=== PATIENT | male | born 1955 | race Caucasian/White ===

== ENCOUNTER 2016-09-30 05:54 | Inpatient (IN) | payer BC ==
[2016-09-30] MEDS ORDERED: ceFAZolin SODIUM 1 GM VIAL IV PRN (06:00)
[2016-09-30] MEDS ORDERED: MORPHINE SULFATE 15 MG TABLET.SA PO PRN (06:00)
[2016-09-30] MEDS: RINGERS SOLUTION,LACTATED 1,000 ML IV PRN ×2 (07:07→07:35)
[2016-09-30] MEDS ORDERED: RINGERS SOLUTION,LACTATED 1,000 ML IV ONE ×2 (08:10→09:55)
[2016-09-30] MEDS: ROPIVACAINE HCL/PF 100 MG, EPINEPHrine 0.2 MG, KETOROLAC TROMETHAMINE 30 MG in NORMAL S... IJ PRN ×2 (08:38→09:15)
[2016-09-30] MEDS: TRANEXAMIC ACID 1,000 MG in NORMAL SALINE 100 ML IV PRN ×2 (08:39→09:15)
[2016-09-30] MEDS ORDERED: MAGNESIUM HYDROXIDE 30 ML UDC PO PRN (10:00)
[2016-09-30] MEDS ORDERED: diphenhydrAMINE HCL 50 MG/ML VIAL IV PRN (10:00)
[2016-09-30] MEDS ORDERED: ONDANSETRON HCL/PF 2 MG/ML VIAL IV PRN (10:00)
[2016-09-30] MEDS ORDERED: HYDROmorphone HCL 1 MG/ML DISP.SYRIN IV PRN (10:00)
[2016-09-30] MEDS ORDERED: ZOLPIDEM TARTRATE 5 MG TABLET PO PRN (10:00)
[2016-09-30] MEDS ORDERED: MAG HYDROX/ALUMINUM HYD/SIMETH 30 ML UDC PO PRN (10:00)
[2016-09-30] MEDS ORDERED: DEXTROSE 5%-LACTATED RINGERS 1,000 ML IV PRN (10:00)
[2016-09-30] MEDS ORDERED: PROMETHAZINE HCL 5 MG in DEXTROSE 5 % IN WATER 50 ML IV PRN ×2 (10:00)
[2016-09-30] MEDS ORDERED: ACETAMINOPHEN 500 MG TABLET PO PRN (10:00)
--- NOTE | 2016-09-30 10:05 | OR ---
Operative Report - Dictated Report Narrative: Date: 09/30/2016 Preoperative diagnosis: Right Knee degenerative joint disease. Postoperative diagnosis: Right Knee degenerative joint disease. Procedure: Right Total knee arthroplasty. Surgeon: Kelvin Byers M.D. Lastex Operator: Vladimir Vinson PA-C Anesthesia: Spinal with regional block and local periarticular joint injection. Complications: None Specimens: Bone for disposal. Estimated blood loss: Minimal. Tourniquet time: 100 Minutes at 325 millimeters of mercury. Retained implants: Depuy Attune size 7 right lugged cemented posterior stabilized femoral component. Size 6 fixed-bearing cemented tibial platform. 7 by 8 millimeter posterior stabilized cross-linked tibial insert. 41 millimeter medialized patella button. Indications: Mr. Waller is a 61-year-old gentleman who has had long- standing right knee pain and arthrosis. This patient was followed in my clinic for period of time with significant complaints of right knee pain consistent with arthritic changes. They had failed conservative measures including, but not limited to, activity modification, passage of time, medications, and other conservative measures. Patient wished to proceed with surgical treatment. The risks, benefits, and alternatives were discussed in clinic. The risks of , blood clots, bleeding, infection, nerve/tendon blood vessel/ injury, malposition of components, intraoperative fracture, postoperative limited range of motion, persistent pain, failure of components, and need for additional procedures. Patient wished to proceed consent was obtained after answering all questions. Procedure: After marking the correct extremity on the floor, the patient was taken to the operating room. A timeout was performed. IV antibiotics consisting of Ancef were administered prior to the procedure. A regional followed by spinal anesthetic was induced by anesthesia on the operative table with all bony prominences well-padded. Singh catheter was placed, and a bump was placed under the operative side buttock. SCDs and GALILEO hose were utilized on the nonoperative leg. A well-padded tourniquet was applied to the operative thigh. The operative leg was then pre-scrubbed with alcohol prepped, and draped in a standard sterile fashion. After exsanguinating the extremity with an Esmarch bandage, the tourniquet was inflated. After marking out the anterior knee for standard incision centered over the patella, the skin was incised and dissected down to the joint retinaculum. The joint retinaculum was marked out as well as the horizontal axis of the patella, and a standard medial parapatellar arthrotomy was then made. The most proximal aspect of the quadriceps tendon and the patella tendon insertion were protected from release. A partial synovectomy was performed as well as a resection of the infrapatellar fat pad. The distal femoral fat pad proximal to the trochlea was also resected using cautery. The soft tissues were elevated off the medial aspect of the proximal tibia using a John elevator ensuring that we did not transect the medial collateral ligament. Upon initial evaluation range of motion was approximately 10 degrees to 110 degrees of flexion. There were signs of advanced arthrosis in the medial, lateral, and patellofemoral joint spaces. There was significant synovitis and multiple loose bodies. There were large marginal osteophytes which were removed with a rongeur. The knee was hyperflexed and the patella was tucked laterally. Protecting the surrounding soft tissues with Homans, an entry drill was placed down the femoral canal using Whitesides line for guidance into the entry point. The intramedullary femoral alignment ramy was utilized in order to cut the distal femur in 5 degrees of valgus resecting 10 millimeters of bone. Next the distal femur was sized to a size 7. A posterior referencing guide was utilized to place the distal femoral cutting block in 3 degrees of external rotation. This was pinned into place. The rotation was confirmed both visually and based on anatomic landmarks. The 4 in 1 cutting jig of the appropriate size was utilized in order to make all bony cuts. The angle wing was used to ensure no notching. Retractors were utilized in order to protect surrounding soft tissues. This cut did not result in any excessive notching. We then cut the box centered over the distal femur. This allowed for resection of the anterior and posterior cruciate ligaments. I then turned my attention to the preparation of the tibia. Using an extra medullary tibial alignment ramy, 3 millimeters of bone was resected off the medial articular surface. This was made perpendicular to the mechanical axis of the joint with the alignment ramy centered over the ankle mortise. The alignment ramy was checked and was noted to be parallel to the mechanical axis, centered over the medial one third of the tibial tubercle, paralleling the anterior surface of the tibia. We then turned our attention to the remaining meniscus and soft tissues. These were removed while protecting the surrounding ligaments and soft tissues. The marginal osteophytes off the anterior, posterior, medial, lateral aspects of the femur and tibia were removed. The tibia was sized out to a size 6. Next the tibia was drilled and punched in an externally rotated position. Next the trial femur and a series of tibial inserts were utilized in order to allow for full extension and maximal flexion. It was found that a 8 millimeter insert gave the best range of motion and stability at multiple flexion points as well as at full extension there was less than 2 mm of gapping both medially and laterally. There is minimal anterior translation with the knee at 90 degrees of flexion and no signs of being able to dislocate the knee. The patella was then prepared. The initial thickness was 26 millimeters. This was reamed down to 16 millimeters parallel to the anterior surface of the patella. It was sized out to a size 41 medialized patella button. This was then drilled and trialed. Without any medial restraint the patella tracked appropriately and did not sublux or dislocate. At this point, it was felt these were the appropriate sized implants, and all trials were removed. The standard periarticular joint injection consisting of ropivacaine, Toradol, and epinephrine were injected into the periarticular joint tissues. The bony surfaces were thoroughly irrigated with a pulsatile- suction saline irrigation device. A bone plug from the prior resected anterior chamfer cut was placed into the drill hole at the distal femur. The bony surfaces were then dried in preparation for placement of the implants. The cement was vacuum mixed per the wireline field operator's instructions. The cement was placed on the dry bony surfaces and posterior aspect of the implants. The implants were impacted into place, removing all extruded cement. At this point anesthesia administered tranexamic acid per protocol intravenously. The knee was placed in extension with axial loading with the trial insert while the cement cured. Once the cement cured, all remaining extruded cement was removed. The knee was placed through a range of motion with the trial insert to ensure appropriate range of motion and stability. Final range of motion was approximately 0 to 120 degrees. The knee was again thoroughly irrigated with pulsatile saline lavage. The final polyethylene insert was then impacted into place ensuring no retained soft tissues. The remaining periarticular joint injection was injected. A medium Hemovac drain was placed exiting superior laterally. The knee was then placed over a triangle and the arthrotomy was closed with interrupted #1 Vicryl after thoroughly irrigating the joint. The deep and subcutaneous tissues were closed with interrupted oh and 3-0 Vicryl respectively. Skin was closed with a running subcutaneous 3-0 Monocryl and Prineo Dermabond dressing. 4 x 4's, Sof-Rol, and a full leg Johnny wrap were applied. All sponge, needle, blade, and instrument counts were correct prior to closing the wounds. Postoperative condition: The patient was awoken and transferred to the postanesthesia care unit in stable condition. Plan is to be admitted to the inpatient medical/surgical floor postoperatively for 24 hours of IV antibiotics , physical therapy, occupational therapy, and medical comanagement. Patient will be weightbearing as tolerated with range of motion as tolerated. DVT prophylaxis will be with SCDs, GALILEO hose, and pharmacological anticoagulation. Anticipated hospital stay is approximately 2-4 days.
[2016-09-30] MEDS: ceFAZolin SODIUM 1 GM in DEXTROSE 5 % IN WATER 100 ML IV SCH ×6 (11:00→23:15)
[2016-09-30] MEDS: KETOROLAC TROMETHAMINE 15 MG/ML VIAL IV SCH ×3 (11:01→22:12)
[2016-09-30] MEDS: oxyCODONE HCL/ACETAMINOPHEN 1 TAB TABLET PO PRN (17:04)
[2016-09-30] MEDS: SENNOSIDES/DOCUSATE SODIUM 1 TAB TABLET PO SCH (20:05)
[2016-09-30] MEDS: MORPHINE SULFATE 15 MG TABLET.SA PO SCH (20:05)
[2016-10-01] MEDS: KETOROLAC TROMETHAMINE 15 MG/ML VIAL IV SCH ×4 (04:27→22:45)
[2016-10-01 05:40] LABS: Hematocrit 32.2 % (42.0-52.0); Hemoglobin 10.7 gm/dL (13.5-18.0); Mean Cell Volume 92.3 fl (78-100); Mean Corpuscular Hemoglobin 30.7 pg (27-31); Mean Corpuscular Hgb Conc 33.2 g/dl (32-36); Mean Platelet Volume 10.3 fl (6.0-9.5); Platelet Count 170 K/mm3 (150-450); Red Blood Count 3.49 M/mm3 (4.7-6.0); Red Cell Distribution Width 12.7 % (11.5-14.0); White Blood Count 7.8 K/mm3 (4.0-10.5)
[2016-10-01 05:49] LABS: Anion Gap 10.4 mmol/L (6.8-13.8); BUN/Creatinine Ratio 11.8 (9.0-21.6); Calcium * 8.1 mg/dL (7.9-10.9); Carbon Dioxide 27.4 mmol/L (24-32.6); Estimated Creat Clear 88.3; Potassium 3.8 mmol/L (3.4-4.6)
[2016-10-01] MEDS: predniSONE 5 MG TABLET PO SCH (08:50)
[2016-10-01] MEDS: FOLIC ACID 1 MG TABLET PO SCH (08:50)
[2016-10-01] MEDS: MORPHINE SULFATE 15 MG TABLET.SA PO SCH ×2 (08:51→20:24)
[2016-10-01] MEDS: ENOXAPARIN SODIUM 40 MG/0.4 ML SYRG SC SCH (09:43)
--- NOTE | 2016-10-01 16:28 | PN ---
Subjective - Date and Time Seen Date: 10/01/16 Time: 16:26 Subjective Narrative: Subjective: Reports no concerns. Was able to walk in the lainez with therapy. Pain is well-controlled. Voiding without any complications. Tolerating by mouth intake. Denies any nausea or vomiting. Denies calf pain. Slept well. Physical exam: Alert and oriented to person, place and time Right lower Extremity: Palpable dorsalis pedis pulse. Sensation grossly intact to light touch. Dressings clean and dry. Able to flex and extend ankle and toes. No excessive drainage. Calf and thigh are soft and nontender. Assessment: Postop day 1 status post right total knee arthroplasty. Plan: Continue with physical and occupational therapy weightbearing as tolerated. Continue with anticoagulation. 24 hours postoperative prophylactic antibiotics. Pain control with goal to rely on oral medications. Continue bowel regimen. Will need 6 weeks with walker or assitive device to protect joint while ambulating during the recovery process. Discharge planning. Discontinue drain and Singh catheter. Repeat labs in a.m. Objective - Vitals Vitals: Last Vital Signs Temp 36.8 C 10/01/16 15:54 Pulse 61 10/01/16 15:54 Resp 16 10/01/16 15:54 BP 113/67 10/01/16 15:54 Pulse Ox 99 10/01/16 15:54 - Abnormal Lab Findings Abnormal Lab Findings: Abnormal Lab Results 10/01/16 10/01/16 Range/Units 05:05 05:05 RBC 3.49 L (4.7-6.0) M/mm3 Hgb 10.7 L (13.5-18.0) gm/dL Hct 32.2 L (42.0-52.0) % MPV 10.3 H (6.0-9.5) fl Random Glucose 114 H (70-110) mg/dL - Exam Constitutional: Present: Alert, Oriented x3 Cauti Physician Documentation - Urinary Catheter Management Urethral (Singh) Date of Insertion: 09/30/16 Time of Insertion: 08:00 Assessment/Plan - Problems/Diagnosis (1) Status post total right knee replacement Problem: Acute (2) Rheumatoid arthritis Problem: Chronic Qualifiers: Rheumatoid arthritis location: multiple sites (3) Acute blood loss anemia Problem: Acute
[2016-10-01] MEDS: SENNOSIDES/DOCUSATE SODIUM 1 TAB TABLET PO SCH (20:24)
[2016-10-02] MEDS: KETOROLAC TROMETHAMINE 15 MG/ML VIAL IV SCH (05:09)
[2016-10-02 06:01] LABS: Hematocrit 28.9 % (42.0-52.0); Hemoglobin 9.7 gm/dL (13.5-18.0); Mean Corpuscular Hemoglobin 30.9 pg (27-31); Mean Corpuscular Hgb Conc 33.6 g/dl (32-36); Mean Platelet Volume 10.1 fl (6.0-9.5); Platelet Count 155 K/mm3 (150-450); Red Blood Count 3.14 M/mm3 (4.7-6.0); Red Cell Distribution Width 12.7 % (11.5-14.0)
[2016-10-02 06:25] LABS: Anion Gap 10.1 mmol/L (6.8-13.8); Calcium * 8.4 mg/dL (7.9-10.9); Carbon Dioxide 28.6 mmol/L (24-32.6); Estimated Creat Clear 83.8; Potassium 3.7 mmol/L (3.4-4.6)
[2016-10-02 06:36] LABS: BUN/Creatinine Ratio 10.2 (9.0-21.6)
[2016-10-02 06:45] VITALS: BP 119/59
[2016-10-02] MEDS: predniSONE 5 MG TABLET PO SCH (08:34)
[2016-10-02] MEDS: MORPHINE SULFATE 15 MG TABLET.SA PO SCH (08:34)
[2016-10-02] MEDS: ENOXAPARIN SODIUM 40 MG/0.4 ML SYRG SC SCH (08:34)
[2016-10-02] MEDS: FOLIC ACID 1 MG TABLET PO SCH (08:34)
--- NOTE | 2016-10-02 10:33 | DS ---
(1) Status post total right knee replacement Problem: Acute (2) Rheumatoid arthritis Problem: Chronic Qualifiers: Rheumatoid arthritis location: multiple sites (3) Acute blood loss anemia Problem: Acute Description of Stay: Mr. Waller was admitted to the floor after undergoing right total knee arthroplasty. Tolerated this well. Was admitted to the floor postoperatively for 24 hours of IV antibiotics, pain control, medical comanagement, and occupational and physical therapy. OT and PT were consulted to assist with activities of daily living and ambulation. Was made weightbearing as tolerated with range of motion as tolerated. Pain was initially controlled with IV regimen. This was transitioned to oral once tolerating a by mouth intake. Was resumed on home diet and medications. Had a Singh catheter inserted and the operating room which was discontinued on postoperative day 1. A drain was placed intraoperatively into the knee which was discontinued on postoperative day 1. Lovenox SCD and GALILEO hose were utilized for DVT prophylaxis. Vital signs remained stable to the hospital course. Serial labs were obtained which showed a final hemoglobin of 9.7 grams. BMP was reviewed and was stable. Physical examination throughout the hospital course showed an extremity that had sensation that was intact to light touch, palpable pulses, a benign wound, motor intact to the toes, ankle, and knee. Knee range of motion was approximately 0 degrees to 70 degrees. Once an oral pain regimen was tolerated and physical therapy goals were met, it was felt that they were stable for discharge to home. Instructions: Continue with weightbearing as tolerated and range of motion as tolerated. He is okay to shower as long as there is no drainage from the wound. He was instructed to cover with dry gauze and tape if there is any drainage. Change every 2-3 days as needed. If there is any drainage he is to cover wound while showering. Continue with physical therapy. Resume home diet. Report any fever over 101.5 Fahrenheit, uncontrolled pain, increased drainage, foul odor of drainage, new or increased calf pain or shortness of breath, or any other significant complaints. A 325mg dialy aspirin will be started after finishing anticoagulation if not allergic. Continue with GALILEO hose on the operative extremity until instructed otherwise. No driving until instructed otherwise. Follow up in approximately 10-14 days. Procedures Performed: see notes below List Procedures: Right total knee arthroplasty Discharge Disposition: Home self care Disposition: Home self-care Condition: Good Discharge Activity: Activity as tolerated, Weight bearing Discharge Diet: General/regular food Senior Care Therapy: Physicial Therapy Additional Patient Instructions (free text): [facility] PT upon discharge. Fax orders and set up appt. Prescriptions (Any new or edited meds): Enoxaparin Sodium [Lovenox] 40 mg SC Q24H #7 disp.syrin Morphine Sulfate [Ms Contin] 15 mg PO Q12H #20 tablet.sa oxyCODONE HCL/ACETAMINOPHEN [Percocet 5 MG/325 MG] 2 tab PO Q4H PRN #90 tablet PRN Reason: Moderate Pain Complete Home Medications List: Complete Home Medication List: Folic Acid 1 mg PO DAILY 09/20/16 Ibuprofen [Motrin] 400 mg PO DAILY 09/20/16 Methotrexate Sodium [Methotrexate] 8 tab PO Q7D 09/20/16 predniSONE [Prednisone] 5 mg PO DAILY 09/20/16 Enoxaparin Sodium [Lovenox] 40 mg SC Q24H #7 disp.syrin 10/02/16 Morphine Sulfate [Ms Contin] 15 mg PO Q12H #20 tablet.sa 10/02/16 Sennosides/Docusate Sodium [Senokot-S] 2 tab PO HS tablet 10/02/16 oxyCODONE HCL/ACETAMINOPHEN [Percocet 5 MG/325 MG] 2 tab PO Q4H PRN #90 tablet 10/02/16 Amb Orders for Discharge: PT Evaluation and Treatment Facility: [facility], Location: Rehabilitation Services
[2016-10-02] MEDS: oxyCODONE HCL/ACETAMINOPHEN 1 TAB TABLET PO PRN (11:25)
== END 2016-10-02 13:38 | disposition home or self-care (01) | DRG 470 ==
LOC: MS 05:54
PROVIDERS: ADMIT Orthopaedic Surgery; ATTEND Orthopaedic Surgery
PROC: 0SRC0J9 Replacement of Right Knee Joint with Synthetic Substitute, Cemented, Open Approach (ICD-10-PCS; principal; 2016-09-30 08:00)
DX: M17.11 Unilateral primary osteoarthritis, right knee (principal); D62 Acute posthemorrhagic anemia; M06.9 Rheumatoid arthritis, unspecified

== ENCOUNTER 2016-10-09 03:04 | Emergency (ER) | payer BC ==
--- NOTE | 2016-10-09 03:43 | ERNOTE ---
ER Male HPI Stated Complaint: ABD PAIN ER Male: urinary retention, other - constipation Time Seen by Provider: 10/09/16 03:35 Source: patient Exam Limitations: no limitations Immunizations: IMMUNIZATION HX Immunizations Up to Date Yes History of Influenza Vaccine No Hx Pneumococcal Vaccination No Allergies/Adverse Reactions: Allergies egg Allergy (Verified 09/27/16 13:03) milk Allergy (Verified 09/27/16 13:04) peanut Allergy (Verified 09/27/16 13:04) wheat Allergy (Verified 09/27/16 13:05) Home Medications: HOME MEDICATIONS Folic Acid 1 mg PO DAILY 09/20/16 [Last Taken 09/12/16] Ibuprofen [Motrin] 400 mg PO DAILY 09/20/16 [Last Taken 09/12/16] Methotrexate Sodium [Methotrexate] 8 tab PO Q7D 09/20/16 [Last Taken 09/12/16] predniSONE [Prednisone] 5 mg PO DAILY 09/20/16 [Last Taken 09/12/16] Morphine Sulfate [Ms Contin] 15 mg PO Q12H #20 tablet.sa 10/02/16 [Last Taken Unknown] Rivaroxaban [Xarelto] 10 mg PO DAILY #7 tablet 10/02/16 [Last Taken Unknown] Sennosides/Docusate Sodium [Senokot-S] 2 tab PO HS tablet 10/02/16 [Last Taken Unknown] oxyCODONE HCL/ACETAMINOPHEN [Percocet 5 MG/325 MG] 2 tab PO Q4H PRN #90 tablet 10/02/16 [Last Taken Unknown] - History of Present Illness Narrative: pt had total knee replacement last week and began to have constipation, this AM he began to have difficulty urinating and for the past few hours has been unable to urinate Timing: Present: constant, getting worse Quality: Present: moderate, severe Onset Location: Present: RLQ, LLQ Radiation: Present: none Prior Abdominal Problems: Present: none Modifying Factors - (Worsens): Present: eating Associated Symptoms: Present: nausea, abdominal pain Prior Treatment: Present: recently seen, recently hospitalized - for TKA Review of Systems - Review of Systems Constitutional: Absent: recent illness EYE: Present: no symptoms reported ENT: Present: no symptoms reported Respiratory: Absent: shortness of breath Cardiology: Absent: chest pain Gastrointestinal/Abdominal: Present: See HPI, nausea, constipation, abdominal pain Genitourinary: Present: See HPI Musculoskeletal: Present: joint pain - recent knee replacement - Patient's Past Medical History Patient History - Medical: Rheumatoid Arthritis Patient History - Cardiac/Respiratory: No pertinent hx Patient History - Cancer: No Hx of Cancer Patient History - Surgical Procedures: Orthopedic Patient History - Other: None - Family History Mother Family History - Medical: Arthritis Family History - Cardiac/Respiratory: Hypertension Family History - Cancer: No pertinent family hx Father Family History - Medical: Diabetes Type 2 Family History - Cardiac/Respiratory: Myocardial Infarction Family History - Cancer: No pertinent family hx Brother Family History - Medical: No pertinent hx Family History - Cardiac/Respiratory: No pertinent hx Family History - Cancer: No pertinent family hx Sister Family History - Medical: No pertinent hx Family History - Cardiac/Respiratory: No pertinent hx Family History - Cancer: No pertinent family hx - Social History Living Situations: home Abuse History: No History of abuse Psych History: No pertinent hx Smoking Status: Never smoker Have you smoked in the past 12 months: No Do you dip or chew tobacco: No Alcohol Use: rarely Drug Use: none - Immunizations Immunizations Up to Date: Yes Hx Pneumococcal Vaccination: No History of Influenza Vaccine: No Physical Exam - Physical Exam General Appearance: Present: wd/wn, alert, mild distress Head Exam: Present: normal inspection, no evidence of injury Eye Exam: Normal inspection: bilateral Neck: Present: normal inspection, nontender, supple Respiratory: Present: no respiratory distress, normal breath sounds, lungs clear Cardiovascular/Chest: Present: regular rate, rhythm Gastrointestinal/Abdominal: Present: abnormal bowel sounds - hypoactive. Absent : guarding, rebound Rectal Exam: Present: tenderness - no anal fissure seen or palpated. , fecal impaction Back Exam: Present: normal inspection, normal range of motion Extremity Exam: Present: normal inspection, non-tender, normal range of motion Neurological Exam: Present: alert, oriented Skin Exam: Present: normal color, warm/dry ED Progress - Results and Orders Patient's Lab Results:: I have reviewed the patient's lab results. Results and Orders: Laboratory Tests 10/09/16 10/09/16 03:54 03:54 WBC 14.3 H Hgb 10.3 L Hct 30.8 L Plt Count 381 Neutrophils % 86.5 H Sodium 138 Potassium 4.0 Chloride 102 Carbon Dioxide 27.6 Anion Gap 12.4 BUN 26 H D Creatinine 1.16 Est GFR (Non-Af Amer) 68 BUN/Creatinine Ratio 22.4 H Random Glucose 129 H Calcium 9.3 Calcium Adj for Albumin 9.5 Total Bilirubin 0.7 AST 19 ALT 21 Alkaline Phosphatase 65 Total Protein 7.5 Albumin 3.4 Amylase 29 Lipase 58 L - Vital Signs Patient's Vital Signs:: I have reviewed the patient's vital signs. Vital Signs: Vital Signs 10/09/16 03:12 Temperature 37.6 C H Pulse Rate 90 Respiratory 20 Rate Blood Pressure 141/61 O2 Sat by Pulse 99 Oximetry - X-Ray X-Ray #1 X-Ray: abdomen Interpretation: Interp. by me X-ray Comments: moderate to severe stool retention. No dilated bowel or a/f levels, no evidence of obstruction - Progress/Reassessment Chief Complaint: Genitourinary Problem Progress Note-Subjective: 10/09/16 04:52 martinez cath placed and returned over 500 mL. 10/09/16 06:50 Pt unwilling to retain enema fluid for a significant amount of time, continues to get back on the stool soon after any fluid entered. Discussed the mechanism of action of an enema and that the fluid needs to soak into the dry stool in his colon. He will try again to retain fluid for longer period. 10/09/16 07:08 Spoke with Vladimir Vinson PA-C about the patient, notifying him that the patient has been in the ED as he is very close post surgery. Discussed my plan of action with enemas and if not working will have patient take a bottle of magnesium citrate. He agrees with the plan. Pt yelling from his room because he is having back pain from lying down. assisted a nurse in getting the patient to the commode. Departure Clinical Impression: Constipation Qualifiers: Constipation type: drug induced constipation Qualified Code(s): K59.03 - Drug induced constipation - Departure Disposition: Home Follow Up Needed Condition: Fair Instructions: Constipation, Adult, [id number] Additional Instructions: increase your daily senna laxative also to keep from getting constipated again. See your regular doctor if not improving, return to the ER as needed. Referrals: Kelvin Byers MD [Primary Care Provider] -
[2016-10-09 03:59] LABS: Hematocrit 30.8 % (42.0-52.0); Hemoglobin 10.3 gm/dL (13.5-18.0); Mean Cell Volume 89.8 fl (78-100); Mean Corpuscular Hgb Conc 33.4 g/dl (32-36); Mean Platelet Volume 9.3 fl (6.0-9.5); Neutrophil # 12.3 K/mm3 (1.3-6.0); Neutrophil % 86.5 % (42-75.0); Platelet Count 381 K/mm3 (150-450); Red Blood Count 3.43 M/mm3 (4.7-6.0); Red Cell Distribution Width 12.2 % (11.5-14.0); White Blood Count 14.3 K/mm3 (4.0-10.5)
[2016-10-09 04:25] LABS: Albumin * 3.4 gm/dl (3.4-5.0); Anion Gap 12.4 mmol/L (6.8-13.8); BUN/Creatinine Ratio 22.4 (9.0-21.6); Bilirubin, Total 0.7 mg/dL (0.0-1.1); Ca. Corrected For Albumin 9.5 mg/dL (8.4-10.2); Calcium * 9.3 mg/dL (7.9-10.9); Carbon Dioxide 27.6 mmol/L (24-32.6); Total Protein 7.5 gm/dL (6.2-8.2)
[2016-10-09] MEDS ORDERED: ONDANSETRON HCL/PF 2 MG/ML VIAL IV ONE (04:32)
[2016-10-09] MEDS ORDERED: MORPHINE SULFATE 2 MG/ML DISP.SYRIN IV ONE (04:32)
[2016-10-09 04:35] LABS: Urine Bilirubin Negative (NEGATIVE); Urine Blood Negative /ul (NEGATIVE); Urine Ketone Negative (NEGATIVE); Urine Nitrite Negative (NEGATIVE); Urine Protein 15 mg/dL (NEGATIVE); Urine Specific Gravity >=1.030 SP.GR. (1.005-1.030); Urine Urobilinogen Normal (NORMAL); Urine pH 5.5 pH (5.0-7.0)
[2016-10-09] MEDS ORDERED: LIDOCAINE HCL 10 APPL CARTRIDGE ONE (04:36)
[2016-10-09] MEDS ORDERED: MORPHINE SULFATE 2 MG/ML DISP.SYRIN ONE (04:39)
[2016-10-09] MEDS ORDERED: ONDANSETRON HCL/PF 2 MG/ML VIAL ONE (04:39)
[2016-10-09 04:48] LABS: Urine Appearance Clear; Urine Bacteria 1+; Urine Color Yellow; Urine Hyaline Cast 0-5 /LPF; Urine RBC TRACE /hpf (0-5); Urine WBC TRACE /hpf (0-5)
[2016-10-09] MEDS ORDERED: MAGNESIUM CITRATE 300 ML BTL PO ONE (08:20)
[2016-10-09] MEDS ORDERED: MAGNESIUM CITRATE 300 ML BTL ONE (08:28)
[2016-10-09 08:47] VITALS: BP 135/74
== END 2016-10-09 08:30 | disposition home or self-care (01) ==
LOC: ER 03:04
DX: K59.03 Drug induced constipation (principal); M54.9 Dorsalgia, unspecified
CPT/HCPCS: 36415; 74020; 80053; 81001; 82150; 83690; 85025; 87086; 96374; 96375; 99283; J2405